=== PATIENT | male | born 1965 ===

== ENCOUNTER 2024-05-30 09:37 | Day surgery (SDC) | payer OTHER ==
[~2024-05-30] VITALS: Ht 182.9 cm; Wt 91.0 kg
[2024-05-30] VITALS (20 sets, daily range): BP systolic 92–147; BP diastolic 66–88
[~2024-05-30 09:37] MED LIST: Lactated Ringer's 1,000 ML IV SCH
[2024-05-30] MEDS ORDERED: propofoL 40 ML IV ONE (10:38)
--- NOTE | 2024-05-30 10:51 | NUR ---
History, Chart, Medications and Allergies reviewed before start of procedure. Patient up to Ambulate independently. Gait steady. Pre-Op teaching done. Pt verbalizes understanding. Patient confirms NPO status and agrees with scheduled surgery. Patient States Post-Procedure ride home has been arranged.
--- NOTE | 2024-05-30 10:52 | NUR ---
05/30/24 1052 Tiff Anthony CONFIRMED AND REVIEWED H&P, MEDCICATIONS, ALLERGIES, MEDICAL HISTORY, RESPIRATORY HISTORY, VITAL SIGNS, 3-LEAD EKG, CONSENTS, AND PHYSICIAN ORDERS. PATIENT CONFIRMS NPO STATUS AND AGREES WITH SCHEDULED PROCEDURE. MONITOR INTACT WITH CONTINUOUS PULSE OXIMETRY, CAPNOGRAPHY, 3-LEAD EKG, INTERMITTENT BP. SUPPLEMENTAL O2 TO BE TITRATED THROUGHOUT PROCEDURE TO MAINTAIN O2 SATURATION ABOVE 90%. PATIENT DETERMINED TO BE ASA APPROPRIATE FOR PROPOFOL SEDATION PRIOR TO START OF PROCEDURE BY DR. PORTILLO MALLAMPATI CLASS 1 AIRWAY: COMPLETE VISULATIZATION OF THE SOFT PALATE.
[2024-05-30] MEDS ORDERED: Midazolam HCl 1MG / ML 2ML Vial ONE (10:56)
== END 2024-05-30 12:00 | disposition home or self-care (01) ==
LOC: ORSCMMR 09:37 → ORD 10:30 → ORSCMMR 10:30
PROVIDERS: Internal Medicine Gastroenterology
PROC: 0DBH8ZX Excision of Cecum, Via Natural or Artificial Opening Endoscopic, Diagnostic (ICD-10-PCS; principal; 2024-05-30 10:30)
DX: Z12.11 Encounter for screening for malignant neoplasm of colon (principal); K63.5 Polyp of colon; E78.00 Pure hypercholesterolemia, unspecified; E11.9 Type 2 diabetes mellitus without complications; K57.30 Diverticulosis of large intestine without perforation or abscess without bleeding
CPT/HCPCS: 82947; 88305; J2250; J2704; J7120